=== PATIENT | female | born 1940 | race Caucasian/White ===

== ENCOUNTER → 2017-01-19 | Outpatient (CLI) | payer MEDICARE, BC ==
--- NOTE | 2017-01-20 12:44 | RADRPT ---
PROCEDURE: I - 123 thyroid uptake and scan CLINICAL INDICATION: 76 -year-old patient with hyperthyroidism. TECHNIQUE: Following the oral administration of 0.17 mCi of I - 123, thyroid uptake and scan was o btained. COMPARISON: November 15, 2012. FINDINGS: 6 hours radioiodine uptake is 38 % (previously 53%, normal range is 5% - 20%). 24 hours radioiodine uptake is 54 % (previous to 64%, normal range is 7% - 35%). The thyroid gland demonstrates an enlarged thyroid gland (approximately 2.5 x normal size) with slig htly heterogeneous distribution of radionuclide throughout the thyroid gland. IMPRESSION: 1. Enlarged thyroid gland with slightly heterogeneous distribution of radionuclide, unchanged since the previous study. 2. Elevated radioiodine uptake, with mild interval improvement since the previous study. RPTAT: HH .Wilda Brantley MD, Date Time Electronically viewed and signed by .Wilda Brantley MD, on 01/20/2017 12:44 .L/
== END | disposition home or self-care (01) ==
LOC: NUC 10:20
PROVIDERS: ATTEND Internal Medicine
DX: E05.20 Thyrotoxicosis with toxic multinodular goiter without thyrotoxic crisis or storm (principal)
CPT/HCPCS: 78014; A9516